=== PATIENT | male | born 2000 | race Caucasian/White ===

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

== ENCOUNTER 2022-09-02 10:18 | Emergency (ER) | payer OTHER ==
[2022-09-02 10:26] VITALS: BP 112/65; PULSE 71; RESP 18; TEMP 97.9; BMI 19.8
[2022-09-02 11:51] LABS: BASO % 0.3 % (0-2.0); EOS % 3.8 % (0-4.5); HEMATOCRIT 43.2 % (35.4-49); HEMOGLOBIN 14.7 GM/dL (11.7-16.9); LYMPH % 26.9 % (8-40); MCH 29.6 pg (25.7-33.7); MCHC 33.9 g/dl (32.0-35.9); MEAN CELL VOLUME 87.1 fl (80-96); MEAN PLT VOLUME 9.3 fl (7.5-11.1); MONO % 6.9 % (3.8-10.2); NEUT % 62.1 % (42.8-82.8); PLATELET COUNT 255 10^3/uL (134-434); RBC 4.96 M/mm3 (4.00-5.60); RDW 13.7 % (11.9-15.9); WHITE BLOOD COUNT 5.4 K/mm3 (4.0-10.0)
[2022-09-02 12:11] LABS: CALCIUM 9.5 mg/dL (8.5-10.1)
[2022-09-02 12:12] LABS: ALBUMIN 4.3 g/dl (3.4-5.0); BLOOD UREA NITROGEN 12.6 mg/dL (7-18)
[2022-09-02 12:15] LABS: CREATININE 0.7 mg/dL (0.55-1.3)
[2022-09-02 12:17] LABS: BILIRUBIN,TOTAL 0.4 mg/dL (0.2-1); TOT PROT 7.6 g/dl (6.4-8.2)
== END 2022-09-02 12:56 | disposition home or self-care (01) ==
LOC: JERFT 10:18
DX: R00.2 Palpitations (principal)
CPT/HCPCS: 36415; 80053; 84443; 85025; 93005; 93010; 99284-25

== ENCOUNTER 2022-09-14 00:39 | Emergency (ER) | payer OTHER ==
[2022-09-14 00:42] VITALS: BP 115/77; PULSE 100; RESP 18; TEMP 98; BMI 19.8
== END 2022-09-14 03:49 | disposition home or self-care (01) ==
LOC: JER 00:39
DX: R07.89 Other chest pain (principal)
CPT/HCPCS: 71046-TC-FY; 93005; 93010; 99284-25

== ENCOUNTER 2023-03-16 06:06 | Emergency (ER) | payer OTHER ==
[2023-03-16 06:15] VITALS: BP 113/72; PULSE 85; RESP 18; TEMP 98.4; BMI 19.8
[2023-03-16] MEDS ORDERED: ACETAMINOPHEN 325 MG TABLET (FP) PO ONE (07:40)
[2023-03-16] MEDS ORDERED: FAMOTIDINE 20 MG TABLET PO ONE (07:40)
[2023-03-16] MEDS ORDERED: MAG HYDROX/AL HYDROX/SIMETH -MYLANTA- ORAL SUSPENSION PO ONE (07:40)
[2023-03-16] MEDS ORDERED: FAMOTIDINE 20 MG TABLET ONE (07:47)
[2023-03-16] MEDS ORDERED: ACETAMINOPHEN 325 MG TABLET (FP) ONE (07:47)
[2023-03-16] MEDS ORDERED: MAG HYDROX/AL HYDROX/SIMETH 30 ML UNIT-DOSE CUP ONE (07:48)
== END 2023-03-16 08:12 | disposition home or self-care (01) ==
LOC: JER 06:06
DX: R10.13 Epigastric pain (principal); R11.2 Nausea with vomiting, unspecified; Z20.822 Contact with and (suspected) exposure to COVID-19
CPT/HCPCS: 0241U-QW; 99283-25

== ENCOUNTER 2023-07-15 21:45 | Emergency (ER) | payer OTHER ==
[2023-07-15 21:50] VITALS: BP 113/60; PULSE 82; RESP 18; TEMP 97.5; BMI 19.2
[2023-07-15 23:34] LABS: BASO % 0.6 % (0-2.0); EOS % 5.1 % (0-4.5); HEMOGLOBIN 14.4 GM/dL (11.7-16.9); LYMPH % 26.6 % (8-40); MCH 30.1 pg (25.7-33.7); MCHC 34.2 g/dl (32.0-35.9); MEAN CELL VOLUME 87.9 fl (80-96); MEAN PLT VOLUME 9.2 fl (7.5-11.1); MONO % 10.3 % (3.8-10.2); NEUT % 57.4 % (42.8-82.8); PLATELET COUNT 231 10^3/uL (134-434); RBC 4.78 M/mm3 (4.00-5.60); RDW 13.4 % (11.9-15.9); WHITE BLOOD COUNT 6.2 K/mm3 (4.0-10.0)
[2023-07-15 23:54] LABS: CALCIUM 8.6 mg/dL (8.5-10.1)
[2023-07-15 23:55] LABS: ALBUMIN 3.8 g/dl (3.4-5.0); BLOOD UREA NITROGEN 16.2 mg/dL (7-18)
[2023-07-15 23:58] LABS: CREATININE 0.6 mg/dL (0.55-1.3)
[2023-07-15 23:59] LABS: BILIRUBIN,TOTAL 0.3 mg/dL (0.2-1); TOT PROT 6.9 g/dl (6.4-8.2)
== END 2023-07-16 01:42 | disposition home or self-care (01) ==
LOC: JER 21:45
DX: R07.89 Other chest pain (principal)
CPT/HCPCS: 36415; 71046-TC-FY; 80053; 84484; 85025; 85379; 93005; 93010; 99285-25